=== PATIENT | female | born 1965 | race Caucasian/White ===

== ENCOUNTER 2018-11-02 08:40 | Emergency (ER) | payer BC ==
[2018-11-02 08:51] VITALS: RESP 18; TEMP 98.1
[2018-11-02] MEDS ORDERED: SODIUM CHLORIDE 0.9% 1,000 ML IV STA ×2 (08:53)
[2018-11-02] MEDS ORDERED: methylPREDNISolone SOD SUCCI 125 MG/2 ML VIAL IV STA (08:55)
[2018-11-02] MEDS ORDERED: FAMOTIDINE 20 MG/2 ML VIAL IV STA (08:56)
[2018-11-02] MEDS ORDERED: diphenhydrAMINE 50 MG/ML 1 ML VIAL IVP STA (08:56)
--- NOTE | 2018-11-02 08:59 | ED ---
General Adult HPI - General Chief complaint: Fall Stated complaint: Fall Time Seen by Provider: 11/02/18 08:47 Source: patient, EMS, RN notes reviewed, old records reviewed Mode of arrival: EMS Limitations: no limitations - History of Present Illness Initial comments: Patient is a 53-year-old female who presents emergency department today with chief complaint of standing and Falling off of a counter. 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 Patient reports she works in [employer]. Patient states that she fell backward. She complains of left-sided rib and abdominal pain. She reports that she hit her head and neck and reports loss of consciousness. She does not know for how long she lost consciousness. Patient states she is not on blood thinners. Patient reports that she has pain with taking a deep breath. - Related Data Home Medications Medication Instructions Recorded Confirmed Atorvastatin [Lipitor] 40 mg PO DAILY 11/02/18 11/02/18 Budesonide-Formot 160-4.5 Mcg 1 puff INHALATION RT-BID 11/02/18 11/02/18 [Symbicort 160-4.5 Mcg Inhaler] Cyanocobalamin (Vitamin B-12) 1,000 mcg PO DAILY 11/02/18 11/02/18 [Vitamin B-12] Enalapril/Hydrochlorothiazide 1 tab PO DAILY 11/02/18 11/02/18 [Vaseretic 10-25 mg] Magnesium Oxide [Mag-Ox] 400 mg PO DAILY 11/02/18 11/02/18 Metoprolol Succinate [Toprol XL] 25 mg PO DAILY 11/02/18 11/02/18 [place]ago-3 Fatty Acids/Fish Oil [Fish 1,000 mg PO DAILY 11/02/18 11/02/18 Oil 1,000 mg Softgel] Venlafaxine HCl [Effexor] 25 mg PO DAILY 11/02/18 11/02/18 Vitamin E 1,000 unit PO DAILY 11/02/18 11/02/18 Allergies Allergy/AdvReac Type Severity Reaction Status Date / Time Iodinated Contrast- Oral and Allergy Rash/Hives Verified 11/02/18 09:21 IV Dye NSAIDS (Non-Steroidal Allergy Unknown Verified 11/02/18 09:21 Anti-Inflamma Review of Systems ROS Statement: Those systems with pertinent positive or pertinent negative responses have been documented in the HPI. ROS Other: All systems not noted in ROS Statement are negative. Past Medical History Past Medical History: Asthma, Hypertension, Pneumonia, Sleep Apnea/CPAP/BIPAP History of Any Multi-Drug Resistant Organisms: None Reported Past Surgical History: Appendectomy, Orthopedic Surgery, Tonsillectomy Past Psychological History: No Psychological Hx Reported Smoking Status: Never smoker Past Alcohol Use History: None Reported Past Drug Use History: None Reported General Exam - General Exam Comments Initial Comments: Patient is a 53-year-old female. Alert and oriented 3. Patient appears in on her discomfort. Limitations: no limitations General appearance: alert, in no apparent distress Head exam: Present: atraumatic, normocephalic, normal inspection, other ( Patient has contusion over the posterior scalp. No bleeding noted.) Eye exam: Present: normal appearance, PERRL, EOMI. Absent: scleral icterus, conjunctival injection, periorbital swelling ENT exam: Present: normal exam, mucous membranes moist Neck exam: Present: normal inspection, other (Patient is in c-collar.). Absent : tenderness, meningismus, lymphadenopathy Respiratory exam: Present: decreased breath sounds (decreased lung sounds due to Patient not able take a full deep breath.). Absent: normal lung sounds bilaterally, respiratory distress, wheezes, rales, rhonchi, stridor Cardiovascular Exam: Present: regular rate, normal rhythm, normal heart sounds. Absent: systolic murmur, diastolic murmur, rubs, gallop, clicks GI/Abdominal exam: Present: soft, tenderness (erythematous over left upper and left flank.), normal bowel sounds. Absent: distended, guarding, rebound, rigid Extremities exam: Present: normal inspection, full ROM, normal capillary refill. Absent: tenderness, pedal edema, joint swelling, calf tenderness Back exam: Present: normal inspection Neurological exam: Present: alert, oriented X3, CN II-XII intact Psychiatric exam: Present: normal affect, normal mood Skin exam: Present: warm, dry, intact, normal color. Absent: rash Course Vital Signs 11/02/18 11/02/18 11/02/18 08:46 09:20 12:13 Temperature 98.1 F Pulse Rate 74 71 78 Respiratory 18 18 18 Rate Blood Pressure 155/95 141/81 132/80 O2 Sat by Pulse 99 98 98 Oximetry - Reevaluation(s) Reevaluation #1: 11/02/18 10:26 Patient is reevaluated continues complaining of some left rib pain posterior head pain. She denies any specific chest pain. Patient's removed from c- collar at this time after cleared. Medical Decision Making - Medical Decision Making 53 yearold female presents after afalling off of counter. She hit her head, L ribs, and had LOC. She has no neurodeficits at this time. She complains of headache and pain with deep breath. She has minor contusion developing over 10- 11 ribs. Patient had lab work and CT brain-spine, and CT Chest,ab,pelvis complete. Labs were normal. EKG shows no acute changes. Patient has normal cT brain and ct CAP. No internal damage. No brain bleed or cervical fracture. Patient has been DC with Dx of concussion and return parameters discussed. - Lab Data Result diagrams: 11/02/18 08:46 11/02/18 08:46 Lab Results 11/02/18 11/02/18 11/02/18 Range/Units 08:46 08:46 08:46 WBC 6.3 (3.8-10.6) k/uL RBC 4.85 (3.80-5.40) m/uL Hgb 14.4 (11.4-16.0) gm/dL Hct 43.5 (34.0-46.0) % MCV 89.7 (80.0-100.0) fL MCH 29.8 (25.0-35.0) pg MCHC 33.2 (31.0-37.0) g/dL RDW 12.9 (11.5-15.5) % Plt Count 267 (150-450) k/uL Neutrophils % 52 % Lymphocytes % 36 % Monocytes % 6 % Eosinophils % 2 % Basophils % 1 % Neutrophils # 3.3 (1.3-7.7) k/uL Lymphocytes # 2.3 (1.0-4.8) k/uL Monocytes # 0.4 (0-1.0) k/uL Eosinophils # 0.1 (0-0.7) k/uL Basophils # 0.1 (0-0.2) k/uL PT (9.0-12.0) sec INR (<1.2) APTT (22.0-30.0) sec Sodium 140 (137-145) mmol/L Potassium 4.3 (3.5-5.1) mmol/L Chloride 104 (98-107) mmol/L Carbon Dioxide 26 (22-30) mmol/L Anion Gap 10 mmol/L BUN 13 (7-17) mg/dL Creatinine 0.78 (0.52-1.04) mg/dL Est GFR (CKD-EPI)AfAm >90 (>60 ml/min/1.73 sqM) Est GFR (CKD-EPI)NonAf 87 (>60 ml/min/1.73 sqM) Glucose 134 H (74-99) mg/dL Calcium 9.9 (8.4-10.2) mg/dL Total Bilirubin 0.5 (0.2-1.3) mg/dL AST 33 (14-36) U/L ALT 54 H (9-52) U/L Alkaline Phosphatase 66 (38-126) U/L Total Creatine Kinase 102 (30-135) U/L CK-MB (CK-2) 0.7 (0.0-2.4) ng/mL CK-MB (CK-2) Rel Index 0.7 Troponin I <0.012 (0.000-0.034) ng/mL Total Protein 7.6 (6.3-8.2) g/dL Albumin 4.7 (3.5-5.0) g/dL Urine Color Urine Appearance (Clear) Urine pH (5.0-8.0) Ur Specific [place] (1.001-1.035) Urine Protein (Negative) Urine Glucose (UA) (Negative) Urine Ketones (Negative) Urine Blood (Negative) Urine Nitrite (Negative) Urine Bilirubin (Negative) Urine Urobilinogen (<2.0) mg/dL Ur Leukocyte Esterase (Negative) Urine Opiates Screen (NotDetected) Ur Oxycodone Screen (NotDetected) Urine Methadone Screen (NotDetected) Ur Propoxyphene Screen (NotDetected) Ur Barbiturates Screen (NotDetected) U Tricyclic Antidepress (NotDetected) Ur Phencyclidine Scrn (NotDetected) Ur Amphetamines Screen (NotDetected) U Methamphetamines Scrn (NotDetected) U Benzodiazepines Scrn (NotDetected) Urine Cocaine Screen (NotDetected) U Marijuana (THC) Screen (NotDetected) Serum Alcohol <10 mg/dL Blood Type Blood Type Confirm Blood Type Recheck Antibody Screen Spec Expiration Date 11/02/18 11/02/18 11/02/18 Range/Units 08:46 08:55 09:00 WBC (3.8-10.6) k/uL RBC (3.80-5.40) m/uL Hgb (11.4-16.0) gm/dL Hct (34.0-46.0) % MCV (80.0-100.0) fL MCH (25.0-35.0) pg MCHC (31.0-37.0) g/dL RDW (11.5-15.5) % Plt Count (150-450) k/uL Neutrophils % % Lymphocytes % % Monocytes % % Eosinophils % % Basophils % % Neutrophils # (1.3-7.7) k/uL Lymphocytes # (1.0-4.8) k/uL Monocytes # (0-1.0) k/uL Eosinophils # (0-0.7) k/uL Basophils # (0-0.2) k/uL PT 9.9 (9.0-12.0) sec INR 0.9 (<1.2) APTT 24.0 (22.0-30.0) sec Sodium (137-145) mmol/L Potassium (3.5-5.1) mmol/L Chloride (98-107) mmol/L Carbon Dioxide (22-30) mmol/L Anion Gap mmol/L BUN (7-17) mg/dL Creatinine (0.52-1.04) mg/dL Est GFR (CKD-EPI)AfAm (>60 ml/min/1.73 sqM) Est GFR (CKD-EPI)NonAf (>60 ml/min/1.73 sqM) Glucose (74-99) mg/dL Calcium (8.4-10.2) mg/dL Total Bilirubin (0.2-1.3) mg/dL AST (14-36) U/L ALT (9-52) U/L Alkaline Phosphatase (38-126) U/L Total Creatine Kinase (30-135) U/L CK-MB (CK-2) (0.0-2.4) ng/mL CK-MB (CK-2) Rel Index Troponin I (0.000-0.034) ng/mL Total Protein (6.3-8.2) g/dL Albumin (3.5-5.0) g/dL Urine Color Urine Appearance (Clear) Urine pH (5.0-8.0) Ur Specific [place] (1.001-1.035) Urine Protein (Negative) Urine Glucose (UA) (Negative) Urine Ketones (Negative) Urine Blood (Negative) Urine Nitrite (Negative) Urine Bilirubin (Negative) Urine Urobilinogen (<2.0) mg/dL Ur Leukocyte Esterase (Negative) Urine Opiates Screen (NotDetected) Ur Oxycodone Screen (NotDetected) Urine Methadone Screen (NotDetected) Ur Propoxyphene Screen (NotDetected) Ur Barbiturates Screen (NotDetected) U Tricyclic Antidepress (NotDetected) Ur Phencyclidine Scrn (NotDetected) Ur Amphetamines Screen (NotDetected) U Methamphetamines Scrn (NotDetected) U Benzodiazepines Scrn (NotDetected) Urine Cocaine Screen (NotDetected) U Marijuana (THC) Screen (NotDetected) Serum Alcohol mg/dL Blood Type AB Positive Blood Type Confirm AB Positive Blood Type Recheck CABO Indicated Antibody Screen NEGATIVE Spec Expiration Date 11/05/2018 - 234511/02/18 Range/Units 10:15 WBC (3.8-10.6) k/uL RBC (3.80-5.40) m/uL Hgb (11.4-16.0) gm/dL Hct (34.0-46.0) % MCV (80.0-100.0) fL MCH (25.0-35.0) pg MCHC (31.0-37.0) g/dL RDW (11.5-15.5) % Plt Count (150-450) k/uL Neutrophils % % Lymphocytes % % Monocytes % % Eosinophils % % Basophils % % Neutrophils # (1.3-7.7) k/uL Lymphocytes # (1.0-4.8) k/uL Monocytes # (0-1.0) k/uL Eosinophils # (0-0.7) k/uL Basophils # (0-0.2) k/uL PT (9.0-12.0) sec INR (<1.2) APTT (22.0-30.0) sec Sodium (137-145) mmol/L Potassium (3.5-5.1) mmol/L Chloride (98-107) mmol/L Carbon Dioxide (22-30) mmol/L Anion Gap mmol/L BUN (7-17) mg/dL Creatinine (0.52-1.04) mg/dL Est GFR (CKD-EPI)AfAm (>60 ml/min/1.73 sqM) Est GFR (CKD-EPI)NonAf (>60 ml/min/1.73 sqM) Glucose (74-99) mg/dL Calcium (8.4-10.2) mg/dL Total Bilirubin (0.2-1.3) mg/dL AST (14-36) U/L ALT (9-52) U/L Alkaline Phosphatase (38-126) U/L Total Creatine Kinase (30-135) U/L CK-MB (CK-2) (0.0-2.4) ng/mL CK-MB (CK-2) Rel Index Troponin I (0.000-0.034) ng/mL Total Protein (6.3-8.2) g/dL Albumin (3.5-5.0) g/dL Urine Color Colorless Urine Appearance Clear (Clear) Urine pH 7.5 (5.0-8.0) Ur Specific [place] 1.012 (1.001-1.035) Urine Protein Negative (Negative) Urine Glucose (UA) Negative (Negative) Urine Ketones Negative (Negative) Urine Blood Negative (Negative) Urine Nitrite Negative (Negative) Urine Bilirubin Negative (Negative) Urine Urobilinogen <2.0 (<2.0) mg/dL Ur Leukocyte Esterase Negative (Negative) Urine Opiates Screen Not Detected (NotDetected) Ur Oxycodone Screen Not Detected (NotDetected) Urine Methadone Screen Not Detected (NotDetected) Ur Propoxyphene Screen Not Detected (NotDetected) Ur Barbiturates Screen Not Detected (NotDetected) U Tricyclic Antidepress Not Detected (NotDetected) Ur Phencyclidine Scrn Not Detected (NotDetected) Ur Amphetamines Screen Not Detected (NotDetected) U Methamphetamines Scrn Not Detected (NotDetected) U Benzodiazepines Scrn Not Detected (NotDetected) Urine Cocaine Screen Not Detected (NotDetected) U Marijuana (THC) Screen Not Detected (NotDetected) Serum Alcohol mg/dL Blood Type Blood Type Confirm Blood Type Recheck Antibody Screen Spec Expiration Date 11/02/18 10:25 EKG shows normal sinus rhythm T-wave abnormality considering anterolateral ischemia. Ventricular rate of 70 bpm. Verbal 154 ms. QRS duration 96 ms. QT QTc is 398/429 ms. - Radiology Data Radiology results: report reviewed No acute fracture dislocation evident cervical spine. No acute intracranial hemorrhage mass effect or midline shift is seen. Left posterior parietal scalp hematoma measuring 6 mm in thickness. There is moderate degenerative disc disease of cervical spine. Impression is there is no osseous fracture abnormal fluid collection or evidence of solid organ injury of the thorax abdomen or pelvis. Disposition Clinical Impression: Head injury, Contusion of rib on left side, Concussion, Fall Disposition: HOME SELF-CARE Condition: Good Instructions (If sedation given, give patient instructions): Concussion (ED), Rib Contusion (ED) Additional Instructions: Patient advised to follow up with your primary care physician. Patient should be monitored for the next 24-48 hours. Patient has any signs of altered mental status Patient should return immediately to the emergency department. Is patient prescribed a controlled substance at d/c from ED?: No Referrals: Nonstaff,Physician [Primary Care Provider] - 1-2 days Time of Disposition: 11:31
[2018-11-02 09:32] LABS: Basophils # (A) 0.1 k/uL (0-0.2); Basophils % (A) 1 %; Eosinophils # (A) 0.1 k/uL (0-0.7); Eosinophils % (A) 2 %; HCT 43.5 % (34.0-46.0); HGB 14.4 gm/dL (11.4-16.0); Lymphocytes # (A) 2.3 k/uL (1.0-4.8); Lymphocytes % (A) 36 %; MCH 29.8 pg (25.0-35.0); MCHC 33.2 g/dL (31.0-37.0); MCV 89.7 fL (80.0-100.0); Mean Platelet Volume 6.6; Monocytes # (A) 0.4 k/uL (0-1.0); Monocytes % (A) 6 %; Neutrophils # (A) 3.3 k/uL (1.3-7.7); Neutrophils % (A) 52 %; Platelet Count 267 k/uL (150-450); RBC 4.85 m/uL (3.80-5.40); RDW 12.9 % (11.5-15.5); WBC 6.3 k/uL (3.8-10.6)
[2018-11-02 09:42] LABS: INR 0.9 (<1.2); Prothrombin Time 9.9 sec (9.0-12.0)
[2018-11-02 09:49] LABS: ALT 54 U/L (9-52); AST 33 U/L (14-36); Albumin 4.7 g/dL (3.5-5.0); Alcohol <10 mg/dL; Alkaline Phosphatase 66 U/L (38-126); Anion Gap 10 mmol/L; Blood Urea Nitrogen 13 mg/dL (7-17); Calcium 9.9 mg/dL (8.4-10.2); Carbon Dioxide 26 mmol/L (22-30); Chloride 104 mmol/L (98-107); Glucose 134 mg/dL (74-99); Potassium 4.3 mmol/L (3.5-5.1); Sodium 140 mmol/L (137-145); Total Bilirubin 0.5 mg/dL (0.2-1.3); Total Protein 7.6 g/dL (6.3-8.2)
[2018-11-02 09:53] LABS: Creatine Kinase 102 U/L (30-135)
--- NOTE | 2018-11-02 09:56 | CT ---
EXAMINATION TYPE: CT brain janet galvan DATE OF EXAM: 11/02/2018 COMPARISON: NONE HISTORY: Fall, LOC. Subsequent head and neck pain CT DLP: 1478.7 mGycm. Automated Exposure Control for Dose Reduction was Utilized. TECHNIQUE: CT scan of the head and cervical spine are performed without contrast. FINDINGS: There is no acute intracranial hemorrhage, mass effect, or midline shift identified. Left posterior parietal scalp hematoma measures 6 mm in greatest thickness. The ventricles and sulci are within normal limits in size. The globes are intact and the visualized sinuses are clear. Cervical spine is visualized in its entirety from C1 through upper thoracic levels and demonstrates s atisfactory alignment without evidence of acute fracture or dislocation. Prevertebral soft tissue ap pears within normal limits. Multilevel moderate degenerative changes of the cervical spine are seen with disc osteophyte complexes at C4-C5, C5-C6 and C6-C7, multilevel uncovertebral hypertrophy and mu ltilevel facet arthropathy. There is also degenerative narrowing of the atlantodental interval. The C 1-C2 articulation is unremarkable. IMPRESSION: 1. There is no acute fracture or dislocation evident in the cervical spine. 2. No acute intracranial hemorrhage, mass effect, or midline shift is seen. 3. Left posterior parietal scalp hematoma measuring 6 mm in greatest thickness. 4. Moderate multilevel degenerative disc disease of the cervical spine.
--- NOTE | 2018-11-02 10:03 | CT ---
EXAMINATION TYPE: CT ChestAbdPelvis w con DATE OF EXAM: 11/02/2018 COMPARISON: NONE HISTORY: Fall, LOC. Patient complains of generalized body pain post trauma. CT DLP: 1128 mGycm. Automated Exposure Control for Dose Reduction was Utilized. CONTRAST: CT scan of the thorax, abdomen and pelvis is performed with IV Contrast, patient injected with 100 mL of Isovue 300. FINDINGS: LUNGS: Dependent atelectasis is moderate in degree.. There is no pleural effusion or pneumothorax s een. The tracheobronchial tree is patent. There is a probable esophageal or less likely tracheal div erticulum is a pocket of air is seen right lateral to the distal cervical esophagus on series 405 soha ge 7 measuring 1.0 x 0.7 cm. No pneumomediastinum is seen to suggest tracheal rupture or laceration. MEDIASTINUM: There are no greater than 1 cm hilar or mediastinal lymph nodes. No pericardial effusi on is seen. Strand-like density in the superior mediastinum likely represents minimal residual thymi c tissue. No masslike configuration is identified. Mild coronary artery calcifications are present. LIVER/GB: Hepatic parenchyma is diffusely hypoattenuated in comparison to that of the spleen, most co mmonly seen in hepatic steatosis. This finding limits evaluation for hepatic masses. No gross evidenc e of hepatic mass is seen. No intrahepatic biliary ductal dilatation. No cholelithiasis. No perihepat ic fluid collection is evident. PANCREAS: No significant abnormality is seen. SPLEEN: No significant abnormality is seen. No perisplenic fluid collection. ADRENALS: No significant abnormality is seen. KIDNEYS: Left renal cyst in the mid pole and lower pole are seen measuring 1.2 and 1.1 cm respectivel y. No hydronephrosis or perinephric fluid collections. BOWEL: No significant abnormality is seen. GENITAL ORGANS: No gross abnormality seen. LYMPH NODES: No greater than 1cm abdominal or pelvic lymph nodes are appreciated. OSSEOUS STRUCTURES: Osseous structures appear intact with minimal grade 1 anterolisthesis of L4 on L5 , likely due to facet arthropathy and retrolisthesis of L2 on L3, also likely on a degenerative basis . Multilevel facet arthropathy is seen throughout the lumbar spine. 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 OTHER: Abdominal aorta is of normal course and caliber with minimal atherosclerotic change. Solitary punctate calcification adjacent to the sigmoid colon may represent sequela prior trauma or c alcified lymph node on image 102. IMPRESSION: No acute osseous fracture, abnormal fluid collection, or evidence of solid organ injury i n the thorax, abdomen, or pelvis.
[2018-11-02 10:06] LABS: Creatine Kinase MB 0.7 ng/mL (0.0-2.4); Troponin I <0.012 ng/mL (0.000-0.034)
[2018-11-02] MEDS ORDERED: MORPHINE SULFATE 2 MG/ML SYRINGE IVP STA (10:28)
[2018-11-02] MEDS ORDERED: CYCLOBENZAPRINE 10 MG TAB PO STA (10:28)
[2018-11-02 10:39] LABS: Appearance,Urine Clear (Clear); Bilirubin,Urine Negative (Negative); Blood,Urine Negative (Negative); Color,Urine Colorless; Glucose,Urine (UA) Negative (Negative); Ketones,Urine Negative (Negative); Leukocyte Esterase,Urine Negative (Negative); Nitrite,Urine Negative (Negative); PH, Urine 7.5 (5.0-8.0); Protein,Urine Negative (Negative); Specific Gravity,Urine 1.012 (1.001-1.035); Urobilinogen,Urine <2.0 mg/dL (<2.0)
[2018-11-02 10:50] LABS: Amphetamine Screen,Urine Not Detected (NotDetected); Benzodiazepines Screen,Urine Not Detected (NotDetected); Cocaine Screen,Urine Not Detected (NotDetected); Opiate Screen,Urine Not Detected (NotDetected); Phencyclidine Screen,Urine Not Detected (NotDetected); Urn Cannabinoid Scrn Not Detected (NotDetected)
[2018-11-02 10:51] LABS: Barbiturate Screen,Urine Not Detected (NotDetected); Methadone Screen, Urine Not Detected (NotDetected); Oxycodone Screen, Urine Not Detected (NotDetected); Tricyclic Antidepressant,Urine Not Detected (NotDetected)
[2018-11-02] MEDS ORDERED: ACET/COD 300 MG/30 MG STARTER PACK 6 TAB BTL PO STA (11:32)
[2018-11-02 12:14] VITALS: BP 132/80; PULSE 78
== END 2018-11-02 12:05 | disposition home or self-care (01) ==
LOC: EC 08:40
DX: S06.0X0A Concussion without loss of consciousness, initial encounter (principal); S20.212A Contusion of left front wall of thorax, initial encounter; S00.03XA Contusion of scalp, initial encounter; R10.9 Unspecified abdominal pain; J45.909 Unspecified asthma, uncomplicated; I10 Essential (primary) hypertension; G47.30 Sleep apnea, unspecified; Z99.89 Dependence on other enabling machines and devices; Z79.51 Long term (current) use of inhaled steroids; Z79.899 Other long term (current) drug therapy; Z91.041 Radiographic dye allergy status; Z88.6 Allergy status to analgesic agent; W17.89XA Other fall from one level to another, initial encounter; Y92.219 Unspecified school as the place of occurrence of the external cause
CPT/HCPCS: 36415; 93005; 86900; 86901; 80053; 82550; 82553; 84484; 85025; 85610; 85730; 86850; 81003; 80306; 80320; 72125; 70450; 71260; 74177; 99285; 96374; 96375 ×3; 96361 ×3; J1200; J2930; J2270; Q9967